=== PATIENT | female | born 1990 | race Caucasian/White ===

== ENCOUNTER 2017-03-22 07:44 | Inpatient (IN) | payer OTHER ==
[~2017-03-22] VITALS: Ht 165.1 cm; Wt 55.0 kg
[2017-03-22] MEDS ORDERED: LACTATED RINGER'S 1000ML 1,000 ML IV PRN (07:58)
[2017-03-22] MEDS ORDERED: MISOPROSTOLTAB 50 MCG TAB PO ONE (08:00)
[2017-03-22 08:27] LABS: MEAN CORPUSCULAR HGB CONC 33.2 g/dl (32-36)
[2017-03-22 08:54] LABS: HEMATOCRIT 36.1 % (37-47); MEAN CORPUSCULAR HEMOGLOBIN 26.4 pg (25-34); PLATELET COUNT 140 K/uL (130-400); PLT ESTIMATE NORMAL; RED BLOOD COUNT 4.51 M/uL (4.2-5.4); WHITE BLOOD COUNT 9.46 K/uL (4.8-10.8)
[2017-03-22] MEDS ORDERED: ALBU4TAB10 PO (09:17)
[2017-03-22] MEDS ORDERED: PRENTAB26 PO (09:18)
[2017-03-22 09:23] VITALS: BMI 20.2
[2017-03-22 09:26] VITALS: Ht 165.1 cm; Wt 55.0 kg
[2017-03-22] MEDS ORDERED: INFLUENZA VIRUS QUAD VACCINE 0.5 ML SYR IM. ONE (10:15)
[2017-03-22] MEDS ORDERED: INFLUENZA ADMINISTRATION CHARGE ONE (10:15)
[2017-03-22] MEDS ORDERED: LACTATED RINGER'S 1000ML 500 ML IV PRN ×2 (12:14→17:55)
[2017-03-22] MEDS ORDERED: OXYTOCIN 30 UNITS/500ML NSS IV PRN ×2 (12:15→20:45)
[2017-03-22] MEDS: LACTATED RINGER'S 1000ML 1,000 ML IV SCH ×2 (12:47→16:39)
[2017-03-22] MEDS ORDERED: EpHEDrine SULFATE INJ 50 MG/ML AMP ONE (15:39)
[2017-03-22] MEDS ORDERED: BUPIVACAINE 0.25% 30 ML VIAL ONE (15:39)
[2017-03-22] MEDS ORDERED: FENTANYL 2MCG/ML ROPIV 1.25MG/ML 100ML BAG EPI ONE (15:40)
[2017-03-22] MEDS ORDERED: FENTANYL CITRATE INJ 50 MCG/1 ML 2 ML VIAL ONE (15:40)
[2017-03-22] MEDS ORDERED: NALOXONE HCL INJ 1 MG in SODIUM CHLORIDE 0.9% 1000ML 1,000 ML IV PRN (17:55)
[2017-03-22] MEDS ORDERED: FENTANYL 2MCG/ML ROPIV 1.25MG/ML 100ML BAG EPI PRN (18:00)
[2017-03-22] MEDS ORDERED: NALOXONE HCL INJ 0.4 MG/1 ML VIAL/CARP IV PRN (18:00)
[2017-03-22] MEDS ORDERED: DiphenhydrAMINE HCL 50 MG/ML VIAL IV PRN (18:00)
[2017-03-22] MEDS ORDERED: EpHEDrine SULFATE INJ 50 MG/ML AMP IV PRN (18:00)
[2017-03-22] MEDS ORDERED: ONDANSETRON INJ 2 MG/ML 2 ML VIAL IV PRN (18:00)
[2017-03-22] MEDS ORDERED: NALBUPHINE HCL INJ 10 MG/ML AMP IV PRN (18:00)
[2017-03-22] MEDS ORDERED: DIPHTHERIA/TETANUS/PERTUSSIS 0.5 ML SYR/VIAL IM. ONE (20:45)
[2017-03-22] MEDS ORDERED: ACETAMINOPHEN/CODEINE 300/30MG TAB PO PRN ×2 (20:45)
[2017-03-22] MEDS ORDERED: BENZOCAINE 20% AER SPR 82.5 GM CAN EXT PRN (20:45)
[2017-03-22] MEDS ORDERED: OXYCODONE/ACETAMINOPHEN 5-325 TAB PO PRN (20:45)
[2017-03-22] MEDS ORDERED: HYDROCORTISONE ACETATE 25 MG SUPP PR PRN (20:45)
[2017-03-22] MEDS ORDERED: SUPERCREAM 0.870 % 15GM JAR EXT PRN (20:45)
[2017-03-22] MEDS ORDERED: LANOLIN OINT EXT PRN ×2 (20:45)
--- NOTE | 2017-03-22 23:27 | DELIVERY SUMMARY ---
DATE OF OPERATION: 03/22/2017 TIME OF DELIVERY: 2024. DELIVERY OF PLACENTA: 2025. DELIVERY NOTE: The patient is a 26-year-old 1, para 0 at 41 weeks and 5 days gestation, who was admitted to labor and delivery on the morning of 03/22/2017 for a scheduled induction of labor, secondary to being post dates. On arrival, she was found to be fingertip thick and -3. She was given 1 dose of Cytotec 15 mcg orally for induction. She was then started on oxytocin per protocol in the afternoon. She received an epidural for anesthesia. Spontaneous rupture of membranes was noted at 1300 with clear amniotic fluid noted. She reached complete dilation at 1944 with the urge to push. The patient pushed to delivery at 2024. She delivered a viable male infant in the right occiput anterior position to an intact perineum. The baby was delivered and placed on the patient's abdomen. Cord was clamped x2 and cut. Apgars were 9 at 1 minute, 9 at 5 minutes. Please see nursing notes for further baby assessment. Cord blood was obtained. Intact placenta with 3-vessel cord was delivered at 2025. Oxytocin fusion was then began. The lower uterine segment and vagina was cleared of any blood clots and debris. Exploration of the perineum noted a first degree vaginal laceration which was repaired with 3-0 Vicryl suture in continuous running fashion. Excellent hemostasis was noted. No other lacerations were seen. Estimated blood loss was 250 mL. All sponge, instrument and needle counts were found to be correct x2. Both patient and baby tolerated the delivery well and were in recovery with stable vital signs. I attest to the content of the Intraoperative Record and any orders documented therein. Any exception s are noted below.
[2017-03-23] VITALS (7 sets, daily range): BP systolic 102–138; BP diastolic 68–83; PULSE 57–83; TEMP 36.5–37
--- NOTE | 2017-03-23 00:47 | Anesthesia Procedure Note ---
Anesthesia Epidural Removal Nt Date & Time Mar 23, 2017 at 00:46 Vital Signs Pain Intensity: 4.0 Notes Mental Status: alert / awake / arousable, participated in evaluation Nausea / Vomiting: adequately controlled Pain: adequately controlled Airway Patency, RR, SpO2: stable & adequate BP & HR: stable & adequate Hydration State: stable & adequate Neuraxial Anesthesia: was administered, sensory block is resolving Anesthetic Complications: no major complications apparent, pt satisfied with anesthetic care Epidural: removed without complications, with tip intact
[2017-03-23] MEDS: IBUPROFEN 600 MG TAB PO PRN ×3 (04:31→20:18)
[2017-03-23 06:43] LABS: HEMATOCRIT 34.3 % (37-47)
[2017-03-23] MEDS: ACETAMINOPHEN 325 MG TAB PO PRN ×2 (08:00→17:03)
[2017-03-23] MEDS: PRENATAL VITAMIN TAB PO SCH (08:01)
[2017-03-23] MEDS: DOCUSATE SODIUM 100 MG CAP PO SCH ×2 (08:01→20:13)
[2017-03-23] MEDS: FERROUS SULFATE 325 MG TAB PO SCH (08:02)
--- NOTE | 2017-03-23 08:11 | OB/GYN Progress Note ---
CLINIC [facility] Progress Note Date of Service: Mar 23, 2017. Patient is seen and examined. She feels well, no complaints.Little sore on stitches. Ambulating without dizziness Voiding without difficulty Tolerating regular diet with out N&V Bleeding is minimal No fever/ chills/ CP/ SOB/ N&V/ Leg pain Bottle feeding without problems Date Time Temp Pulse Resp B/P (MAP) Pulse Ox O2 Delivery O2 Flow Rate FiO2 03/23/17 04:30 37.0 67 16 119/77 (91) 03/23/17 00:35 Room Air 03/23/17 00:35 36.9 57 18 129/81 (97) Last 24 Hours Test 03/22/17 08:11 03/23/17 06:26 White Blood Count 9.46 K/uL Red Blood Count 4.51 M/uL Hemoglobin 11.9 g/dL 11.5 g/dL Hematocrit 36.1 % 34.3 % Mean Corpuscular Volume 80.0 fL Mean Corpuscular Hemoglobin 26.4 pg Mean Corpuscular Hemoglobin Concent 33.2 g/dl RDW Standard Deviation 48.6 fL RDW Coefficient of Variation 16.7 % Platelet Count 140 K/uL Platelet Estimate NORMAL PE: General: Alert, orientedx3, NAD Abd: soft, NT, fundus firm, below Umbilicus Perineum intact, Lochia rubra minimal Ext; NT, no edema AP: 26 yo s/p , ppd# 1 VSS Afebrile doing well Continue routine care Social service consult pending All questions were answered
[2017-03-23] MEDS ORDERED: BISACODYL 5 MG TABEC PO SCH (20:00)
[2017-03-24] MEDS ORDERED: BISACODYL 10 MG SUPP PR PRN (07:00)
[2017-03-24 07:48] LABS: HEMATOCRIT 34.8 % (37-47); MEAN CELL VOLUME 80.4 fL (80-100); MEAN CORPUSCULAR HEMOGLOBIN 26.3 pg (25-34); MEAN CORPUSCULAR HGB CONC 32.8 g/dl (32-36); PLATELET COUNT 151 K/uL (130-400); RED BLOOD COUNT 4.33 M/uL (4.2-5.4); WHITE BLOOD COUNT 11.93 K/uL (4.8-10.8)
[2017-03-24] MEDS: PRENATAL VITAMIN TAB PO SCH (08:31)
[2017-03-24] MEDS: FERROUS SULFATE 325 MG TAB PO SCH (08:31)
[2017-03-24] MEDS: DOCUSATE SODIUM 100 MG CAP PO SCH (08:31)
[2017-03-24 08:35] VITALS: BP 120/76; PULSE 106; TEMP 36.8
[2017-03-24] MEDS: ACETAMINOPHEN 325 MG TAB PO PRN (08:41)
[2017-03-24] MEDS ORDERED: MTR600X PO (10:07)
--- NOTE | 2017-03-24 10:07 | OB/GYN Progress Note ---
APPLICATION SUPPORT Progress Note Date of Service: Mar 24, 2017. Patient is seen and examined. She feels well, no complaints. Likes to be discharged. Ambulating without dizziness Voiding without difficulty Tolerating regular diet with out N&V Bleeding is minimal No fever/ chills/ CP/ SOB/ N&V/ Leg pain Bottle feeding without problems Discussed contraception, she likes to discuss at 6 weeks pp visit Recommended abstinence for 6 weeks Date Time Temp Pulse Resp B/P (MAP) Pulse Ox O2 Delivery O2 Flow Rate FiO2 03/24/17 08:35 36.8 106 20 120/76 (91) 03/23/17 23:45 Room Air 03/23/17 23:45 36.5 76 18 102/68 (79) 03/23/17 20:00 36.7 74 18 118/79 (92) 03/23/17 15:52 36.9 73 16 109/73 (85) 03/23/17 12:10 36.7 83 20 138/83 (101) Last 24 Hours Test 03/24/17 07:24 White Blood Count 11.93 K/uL Red Blood Count 4.33 M/uL Hemoglobin 11.4 g/dL Hematocrit 34.8 % Mean Corpuscular Volume 80.4 fL Mean Corpuscular Hemoglobin 26.3 pg Mean Corpuscular Hemoglobin Concent 32.8 g/dl RDW Standard Deviation 49.3 fL RDW Coefficient of Variation 17.0 % Platelet Count 151 K/uL PE: General: Alert, orientedx3, NAD Abd: soft, NT, fundus firm, below Umbilicus Perineum intact, Lochia rubra minimal Ext; NT, no edema AP: 26 yo s/p , ppd# 2 VSS Afebrile doing well Continue routine care All questions were answered Instructions were given when to call manager environmental services in to help for housing D/C home , f/u in office
--- NOTE | 2017-03-24 10:08 | Discharge Instructions ---
Discharge Instructions Date of Service Mar 24, 2017. Admission Reason for Admission: Induction Discharge Discharge Diagnosis / Problem: Discharge Goals Goal(s): Routine recovery after delivery Medications Continue Dispensed Medications: supercream, dermaplast, lansinoh, other Activity Recommendations Activity Limitations: as noted below ACTIVITY RECOMMENDATIONS: * Gradual return to full activity over the next 2-3 weeks. * No lifting - nothing heavier than baby over the next 2-3 weeks. * Do not engage in vigorous exercise, sexual activity or sports until cleared by your physician. * Do not drive or operate any motorized equipment until cleared by your physician. * You may shower/bathe daily. BREAST CARE: If you are not breast feeding: * Wear a supportive bra 24 hours a day for one to two weeks. * Avoid stimulating your breasts and nipples as much as possible during the first few weeks after delivery. * When taking a shower, have the warm water hit your back, not breasts. * When your breasts feel full, apply ice packs. Usually three to four times a day helps ease the discomfort. * Take a mild pain medication (Tylenol/Motrin) when you are uncomfortable. If breast feeding: * Use breast milk to lubricate nipples. Lansinoh cream may be used for sore nipples. You do not need to remove cream prior to breast feeding. If using a different brand of cream, check the label for directions regarding removal of cream prior to nursing. * Wear a supportive bra. * If having problems with breasts or breast feeding, call a regional sales consultant or your health care provider. EPISIOTOMY CARE: After delivery, if you have an episiotomy (stitches), the following steps will ease discomfort and aid healing. * For the first 24 hours after delivery, place ice packs next to your episiotomy to help reduce swelling. * After the first 24 hour-period, sitz baths, either portable or in the tub, are suggested. A shower with a shower arm sprayed over the episiotomy may be comforting. * [place] care should be done after each voiding and bowel movement. Squirt warm water from a plastic bottle over the perineum (region of the body between the anus and urinary opening) and pat dry. * Use Dermoplast to ease discomfort. Shake container. Reading directly over the episiotomy. * Place a Tucks on a clean sanitary pad next to your episiotomy. OVER THE COUNTER MEDICATION: * For discomfort or pain, you may use Acetaminophen (Tylenol), Ibuprofen (Advil ), or Naproxen (Aleve) following the package directions. * For constipation you may use Colace following the package directions. SPECIAL CARE INSTRUCTIONS: When you are discharged from the hospital, it is important for you to follow the instructions listed below: * During the first week at home, you should be able to care for yourself and your baby. In addition, the usual light household activities are encouraged. * Limit your activities to the way you feel. Do not try to clean the house or move furniture. Be sensible. * If you actively engage in sports and have done so up until the time of your delivery, you may resume these activities as soon as you feel able. This may take up to one month or even longer. Use good judgment. * Continue to take your vitamins for at least six weeks after the of your baby. * Your diet need not be limited unless you were on a special diet before your delivery. Breast-feeding mothers need around 2500 calories per day and at least 64-80 ounces of fluid per day (8 to 10 glasses). * You should eat foods from the four major food groups. Crash diets or fad diets are to be avoided. Eating lean meats, fresh fruits and vegetables, low-fat dairy products, high fiber foods and a regular exercise program, will help you get back to your pre- weight without putting your health at risk. * Constipation is sometimes a problem after delivery. Take a mild laxative as needed. If breast feeding, Milk of Magnesia is acceptable to use. You may use a suppository or Fleets enema if no episiotomy. * A daily shower or tub bath is suggested. Be sure to thoroughly and gently dry the perineum. * A bloody vaginal discharge will usually continue until around four weeks post . A small amount of bleeding may continue for as long as six weeks. Vaginal discharge changes from the bright red bleeding after delivery to pink then brownish and finally yellowish-pink before becoming white and disappearing. * Bleeding may increase with activity. Your first period may come in 4-8 weeks. If you are breast feeding, your period may be delayed even longer. * [place] (sex) can begin whenever both you and your partner feel comfortable and do not have any form of genital infection. It is recommended that you wait until after your return appointment and discuss with your physician. If you have questions, please talk to your health care practitioner. A condom should be used to prevent infection and . * Foreplay, gentle intercourse and lubrication is very important the first several times to prevent pain. A water-based lubricant such as K-Y jelly or Astroglide may be used. * Tampons may be used six weeks after delivery. * Douching should be avoided for 6 weeks after delivery. * If you have RH negative blood and your baby is RH positive, you will receive RHOGAM by injection prior to discharge. The nurse will give you a card to keep with you that has the date and place that you received RHOGAM after delivery. * During your care, you had a Rubella screen done to check for the presence of rubella antibodies in your blood. If your test was negative, you will receive a Rubella vaccine prior to discharge. This vaccine may cause a fever, soreness at the injection site and flu-like symptoms. If these symptoms persist, notify your health care practitioner. is not advised for three months after a Rubella vaccine. There is a higher chance of having a baby with defects if conceived within three months of getting the vaccine. * If you were discharged 24 hours from delivery or before 48 hours: Visiting nurses will come to your home 48 hours after discharge to assess you and your baby. The visiting nurse will meet with you while you are in the hospital to arrange a time and get directions to your home. * Verbalizes understanding of car seat law as reviewed with patient nursing. * Car Seat hand-out given and reviewed with patient by nursing. * Shaken baby information reviewed with patient by nursing. Call you doctor if: * Heavy bleeding (saturating several pads an hour) or passing clots the size of your fist. * A fever >101 degrees F (38.3 degrees C) on two occasions four hours apart and/or chills. * Unusual pain in the pelvic or vaginal areas. * "Baby Blues" lasting longer than two weeks. If you have any questions or concerns, call your health care practitioner at . FOLLOW-UP VISIT: * Please call the office at to schedule a 6 week examination. It is important you keep this appointment. * It is important for you to make arrangements for either yearly or twice yearly check-ups thereafter. . Current Hospital Diet Patient's current hospital diet: Regular OB Diet Discharge Diet Recommended Diet: Regular Diet Pending Studies Studies pending at discharge: no Medical Emergencies . Who to Call and When: Medical Emergencies: If at any time you feel your situation is an emergency, please call 911 immediately. . Non-Emergent Contact Non-Emergency issues call your: Surgeon, Specialist Call Non-Emergent contact if: temperature is above 100.5, temperature is above 101, your pain is not controlled, your pain is worsening . . "Provider Documentation" section prepared by Concepción Johnson. . VTE Core Measure Inpt VTE Proph given/why not?: Treatment not indicated
[2017-03-24] MEDS ORDERED: NURSING VERBAL MED ORDER ONE (11:30)
[2017-03-24] MEDS ORDERED: MEASLES, MUMPS & RUBELLA VIRUS VIAL SQ. ONE (11:45)
[2017-03-24 12:10] VITALS: BP_DIAS 76; PULSE 106; TEMP 36.8
== END 2017-03-24 12:15 | disposition home or self-care (01) | DRG 775 ==
LOC: C.LD 07:44 → C.OBG 03-23 00:34
PROVIDERS: ADMIT Obstetrics & Gynecology; ATTEND Obstetrics & Gynecology
PROC: 10E0XZZ Delivery of Products of Conception, External Approach (ICD-10-PCS; principal; 2017-03-22)
PROC: 3E0P7GC Introduction of Other Therapeutic Substance into Female Reproductive, Via Natural or Artificial Opening (ICD-10-PCS; principal; 2017-03-22)
PROC: 0HQ9XZZ Repair Perineum Skin, External Approach (ICD-10-PCS; principal; 2017-03-22)
DX: O48.0 Post-term pregnancy (principal); O70.0 First degree perineal laceration during delivery; Z3A.41 41 weeks gestation of pregnancy; Z37.0 Single live birth